=== PATIENT | male | born 1990 | race Caucasian/White ===

== ENCOUNTER 2023-01-22 10:06 | Emergency (ER) | payer BC | END 2023-01-22 11:22 | disposition home or self-care (01) | LOC: JD.ED 10:06 | DX: L30.9 Dermatitis, unspecified (principal); F17.210 Nicotine dependence, cigarettes, uncomplicated | CPT/HCPCS: 99282 ==

== ENCOUNTER 2023-01-27 16:44 | Emergency (ER) | payer BC | END 2023-01-27 17:45 | disposition home or self-care (01) | LOC: JD.ED 16:44 | DX: R21 Rash and other nonspecific skin eruption (principal); F17.210 Nicotine dependence, cigarettes, uncomplicated | CPT/HCPCS: 99282; 99283 ==

== ENCOUNTER 2023-11-27 05:21 | Emergency (ER) | payer BC | END 2023-11-27 06:51 | disposition home or self-care (01) | LOC: JD.ED 05:21 | DX: M25.561 Pain in right knee (principal); F17.210 Nicotine dependence, cigarettes, uncomplicated | CPT/HCPCS: 73562-26-RT; 73562-RT; 99283 ==

== ENCOUNTER 2024-03-17 17:14 | Emergency (ER) | payer BC ==
[2024-03-17] MEDS ORDERED: Sodium Chloride 0.9% 10 ML Syringe FLUSH PRN (18:04)
[2024-03-17] MEDS: Sodium Chloride 0.9% 1,000 ML IV STA (18:07)
[2024-03-17] MEDS: Ondansetron 4 MG/2 ML SDV IVPUSH ONE (18:08)
[2024-03-17 18:18] LABS: BASOPHILS ABSOLUTE AUTO 0.1 K/mm3 (0.0-0.2); BASOPHILS PERCENT AUTO 0.6 % (0.0-1.0); EOSINOPHILS ABSOLUTE AUTO 0.2 K/mm3 (0.0-0.4); EOSINOPHILS PERCENT AUTO 1.1 % (0.0-6.0); HEMATOCRIT 53.1 % (42.0-52.0); HEMOGLOBIN 17.7 gm/dl (14.0-18.0); IMMATURE GRAN ABSOLUTE AUTO 0.08 K/mm3 (0.00-0.05); IMMATURE GRAN PERCENT AUTO 0.6 % (0.0-0.4); LYMPHOCYTES ABSOLUTE AUTO 2.1 K/mm3 (1.0-4.8); LYMPHOCYTES PERCENT AUTO 14.4 % (24.0-44.0); MEAN CORPUSCULAR HEMOGLOBIN 28.8 pg (28.0-32.0); MEAN CORPUSCULAR HGB CONC 33.3 g/dl (32.0-36.0); MEAN CORPUSCULAR VOLUME 86.3 fl (83.0-99.0); MEAN PLATELET VOLUME 9.2 fl (9.4-12.4); MONOCYTES ABSOLUTE AUTO 0.7 K/mm3 (0.0-0.8); NEUTROPHILS ABSOLUTE AUTO 11.2 K/mm3 (1.8-7.7); NEUTROPHILS PERCENT AUTO 78.3 % (41.0-71.0); PLATELET COUNT,PLT 169 K/mm3 (150-400); RED BLOOD CELL COUNT 6.15 M/mm3 (4.52-5.90); WHITE BLOOD CELL COUNT,WBC 14.27 K/mm3 (3.9-11.3)
[2024-03-17 18:35] LABS: A/G RATIO 1.2 (1-2); ALBUMIN 4.1 g/dl (3.4-5.0); ANION GAP 13.2 (5-15); BILIRUBIN TOTAL 0.8 mg/dL (0.2-1.0); C-REACTIVE PROTEIN 1.24 mg/dL (<0.30); EST CRCL DRUG DOSING (CG) 96.4 mL/min; POTASSIUM,K 4.2 mEq/L (3.5-5.1); PROTEIN TOTAL,TP 7.4 g/dl (6.4-8.2)
== END 2024-03-17 20:02 | disposition home or self-care (01) ==
LOC: JD.ED 17:14
DX: A08.4 Viral intestinal infection, unspecified (principal); F17.210 Nicotine dependence, cigarettes, uncomplicated
CPT/HCPCS: 36415; 80053; 83690; 85025; 86140; 96361; 96374; 99284; J2405; J7030; 99283